=== PATIENT | female | born 2000 | race Caucasian/White ===

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

== ENCOUNTER 2025-01-11 11:33 | Emergency (ER) | payer SELFPAY ==
[2025-01-11 12:14] VITALS: BP 134/89; PULSE 101; RESP 16; TEMP 37; O2SAT 100
--- NOTE | 2025-01-11 13:08 | ED_ITS ---
HPI - Skin/Abscess/Foreign Bdy General: Chief complaint: Skin/Abscess/Foreign Body Stated complaint: rash Time Seen by Provider: 01/11/25 13:35 Source: patient Mode of arrival: ambulatory Limitations: no limitations History of Present Illness: 24yo female presents to the emergency de partment with family for evaluation of a rash that has been present for 1 week. Patient reports the rash started after she did yard work one week ago. States it is somewhat itchy at times. Patient reports she has been using Benadryl cream, but it caused a burning sensation, so family advised her to stop. Patient denies fever, chills, recent illness, pain to the rash, any other concerns at this time. Associated symptoms: Deny chills, fever(s) or vomiting Related Data Previous Rx's ?Medication ?Instructions ?Recorded prednisone 20 mg tablet 40 mg (2 x 20 mg) PO DAILY 5 days 01/11/25 #10 tabs Allergies Allergy/AdvReac Type Severity Reaction Status Date / Time No Known Allergies Allergy Verified 10/13/19 08:08 Review of Systems Const: Denies: fever(s), chills or body aches GI: Denies: abdominal pain or vomiting Musc: Denies: neck pain or back pain Skin/Breast: Reports: rash Neuro: Denies: headache(s) PFSH ED PFSH: Medical History (Updated 01/11/25 @ 13:57 by REGINA Ackerman) Vulvitis Surgical History H/O fracture of arm (~2013) left-- surgical repair Family History Grandmother CAD (coronary artery disease) Maternal great grandmother Denies family history of Diabetes Hyperlipidemia Cancer Hypertension Stroke Social History Smoking and tobacco/nicotine status: never used tobacco/nicotine Alcohol intake: never Substance/Drug Use: never Physical Exam Const: COMMON NORMALS: no acute distress, patient oriented x3 and alert GENERAL APPEARANCE: cooperative ORIENTATION/CONSCIOUSNESS: Yes awake OTHER: Patient is sitting upright in a vertical flow recliner in no acute distress. She is able to give history with no difficulty. She is interactive with exam appropriately. Family is present HENMT: COMMON NORMALS: normocephalic, atraumatic and Normal external nose present HEAD & SCALP: normocephalic and atraumatic NOSE: Normal external nose present MOUTH: lip normal Eye: GENERAL EYE: appearance normal, both eyes and all related structures Chest: CHEST: Yes Symmetrical chest wall rise Resp: COMMON NORMALS: normal respiratory effort EFFORT & INSPECTION: No respiratory distress Extremity: COMMON NORMALS: full ROM NARRATIVE EXTREMITY EXAM: MAEW Neuro: COMMON NORMALS: patient oriented x3 SENSORIUM/ORIENTATION: Yes alert Skin: RASHES: rashes noted (Faint erythematous patches to anterior neck, chest, and low abdomen) Course Vital Signs: Vital signs: Vital Signs Temperature 98.6 F 01/11/25 12:14 Pulse Rate 101 H 01/11/25 12:14 Respiratory Rate 16 01/11/25 12:14 Blood Pressure 134/89 01/11/25 12:14 Pulse Oximetry 100 01/11/25 12:14 Oxygen Delivery Me thod Room Air 01/11/25 12:14 MDM - Skin/Abscess/Foreign Bdy Medicial Decision Making 24yo female presents to the emergency department with family for evaluation of a rash that has been present for 1 week. Patient reports the rash started after she did yard work one week ago. States it is somewhat itchy at times. Patient reports she has been using Benadryl cream, but it caused a burning sensation, so family advised her to stop. Patient denies fever, chills, recent illness, pain to the rash, any other concerns at this time. Patient is nontoxic in appearance. Vital signs are stable. Discussed with patient and family the rash is likely a contact dermatitis. Advised that the worsening around the neck is likely related to her shirts rubbing on the area. With the lack of fever, recent illness, or acute illness now, not likely to be viral or bacterial in nature. Will prescribe steroids for the contact dermatitis. Discussed use of cool compress and avoidance of scratching to avoid bacterial infection. Recommend follow-up with primary care, call within 1 week for recheck, sooner if needed. Return precautions provided. Patient and family state understanding and have no further questions or concerns at this time. Differential Diagnosis Likely abscess of skin or subcutaneous tissue, cellulitis, eczema, impetigo and contact dermatitis Medical Records I reviewed the patient's medical records. No radiology studies performed this visit Discharge Plan Discharge Patient Disposition: Home Clinical Impression: Contact dermatitis Qualifiers: Contact dermatitis type: irritant Contact dermatitis trigger: non-food plants Qualified Code(s): L24.7 - Irritant contact dermatitis due to plants, except food Condition: Stable Prescriptions: New prednisone 20 mg tablet 40 mg PO DAILY 5 Days Qty: 10 0RF Discharge Orders: Discharge ED (Routine); Ordered 01/11/25 Ordered By: Mateo Kirkland Discharge Diet: Usual diet Discharge Activity: Resume usual activity Patient Instructions: Contact Dermatitis (ED), Pain Management Activity Restrictions/Additional Instructions: A short course of steroids have been sent to the pharmacy for the contact dermatitis Apply a cool compress by using a chilled lotion or aloe vera to help with itching Heat will make the rash appear more red and itch more Follow-up with primary care within 1 week for recheck, sooner if needed Return to the emergency department if any rapid worsening symptoms, onset of fever associated with worsening, and as needed Print Language: Thai Coding Level of Care Code ED [employer] Manager for Javier Tipton
== END 2025-01-11 14:06 | disposition home or self-care (01) ==
PROVIDERS: Emergency Provider Nurse Practitioner
DX: L24.7 Irritant contact dermatitis due to plants, except food (principal)
CPT/HCPCS: 99283